=== PATIENT | female | born 1955 | race African-American/Black ===

== ENCOUNTER → 2018-04-17 12:59 | Emergency (ER) | payer MEDICARE, OTHER ==
[2018-04-17 13:16] VITALS: BP 186/94
--- NOTE | 2018-04-17 14:42 | ED ---
Lower Extremity - HPI Summary HPI Summary: This patient is a 62 year old F presenting to [facility] status post fall that occurred yesterday. Pt states that she fell getting off the bus. The patient rates the pain 10/10 in severity. Symptoms aggravated by nothing. Symptoms alleviated by nothing. Patient reports first and second left toe pain and general bruising. Patient denies headache, blurred vision, double vision, ear ache, sore throat, CP, abd pain, back pain, dysuria, and hematuria. - History of Current Complaint Chief Complaint: EDExtremityLower Stated Complaint: RIGHT FOOT PAIN Hx Obtained From: Patient Mechanism Of Injury: Fall From A Standing Position Onset of Pain: Immediate, Post Accident Onset/Duration: Still Present Severity Initially: Severe Severity Currently: Severe Pain Intensity: 10 Pain Scale Used: 0-10 Numeric Timing: Constant Location: Is Discrete @ - R foot Associated Signs And Symptoms: Positive: Other - Positive first and second left toe pain and general bruising. Negative headache, blurred vision, double vision , ear ache, sore throat, CP, abd pain, back pain, dysuria, and hematuria. Aggravating Factor(s): Nothing Alleviating Factor(s): Nothing Able to Bear Weight: No - Allergies/Home Medications Allergies/Adverse Reactions: Allergies Allergy/AdvReac Type Severity Reaction Status Date / Time carbamazepine [From Tegretol] Allergy Anaphylatic Verified 04/17/18 13:10 Shock Iodinated Contrast- Oral and Allergy See Comment Verified 04/17/18 13:10 IV Dye phenobarbital Allergy Anaphylatic Verified 04/17/18 13:10 Shock Sulfa (Sulfonamide Allergy Anaphylatic Verified 04/17/18 13:10 Antibiotics) Shock tetracycline Allergy Anaphylatic Verified 04/17/18 13:10 Shock PMH/Surg Hx/FS Hx/Imm Hx Previously Healthy: No Endocrine/Hematology History: Reports: Hx Thyroid Disease Denies: Hx Diabetes Musculoskeletal History: Reports: Other Musculoskeletal History - Polio in right leg Infectious Disease History: No Infectious Disease History: Denies: Traveled Outside the [place] in Last 30 Days - Family History Known Family History: Positive: Cardiac Disease Negative: Diabetes - Social History Occupation: Retired Lives: With Family Alcohol Use: None Hx Substance Use: No Substance Use Type: Reports: None Hx Tobacco Use: No Smoking Status (MU): Never Smoked Tobacco Review of Systems Negative: Fever Negative: Blurred Vision, Diplopia Negative: Sore Throat, Ear Ache Negative: Chest Pain Negative: Shortness Of Breath Negative: Abdominal Pain Negative: dysuria, hematuria Positive: Other - Positive first and second left toe pain. Negative back pain Positive: Bruising Negative: Headache Negative: Anxious, Depressed All Other Systems Reviewed And Are Negative: No Physical Exam - Summary Physical Exam Summary: Appearance: Alert, conversive, nontoxic appearing Skin: Warm, dry, no mottling, no rashes. Bruising to both forearms. HEENT: EOMI, PERRL, moist mucous membranes Neck: No masses on the neck, supple Respiratory: Clear to auscultation, breath sounds present, no rales, no rhonchi , no wheezes Cardiovascular: RRR, pulses are symmetrical in both lower and upper extremities Abdomen: Soft, non-tender Bowel Sounds: Present Musculoskeletal: No CVA tenderness, no obvious deformity, moving all extremities in a grossly normal manner. Muscle wasting in right leg. Swelling in first and second toes on left foot. Neurological: A&Ox3, CN II-XII Intact, moving all extremities symmetrically Psychiatric: Normal affect and mood Triage Information Reviewed: Yes Vital Signs On Initial Exam: Initial Vitals Temp Pulse Resp BP Pulse Ox 97.6 F 82 16 186/94 95 04/17/18 13:12 04/17/18 13:12 04/17/18 13:12 04/17/18 13:12 04/17/18 13:12 Vital Signs Reviewed: Yes Diagnostics - Vital Signs Vital Signs Temp Pulse Resp BP Pulse Ox 04/17/18 13:12 97.6 F 82 16 186/94 95 - Laboratory Lab Statement: Any lab studies that have been ordered have been reviewed, and results considered in the medical decision making process. - Radiology Foot XR Radiology Interpretation Completed By: Radiologist - Foot XR reveals, per radiologist, questionable nondisplaced fracture at the plantar, proximal corner of the right great toe distal phalanx. ED physician has reviewed this radiology report. Re-Evaluation - Re-Evaluation First Eval Re-Evaluation Time: 16:05 Change: Unchanged Comment: Pt states she is unable to ambulate with her cane and the surgical shoe is too painful to walk in. She will attempt to ambulate with a walker Lower Extremity Course/Dx - Course Course Of Treatment: This patient is a 62 year old F presenting to [facility] status post fall that occurred yesterday. Pt states that she fell getting off the bus. Physical Exam Findings: Muscle wasting in right leg. Bruising to both forearms. Swelling in first and second toes on left foot. Foot XR reveals, per radiologist , questionable nondisplaced fracture at the plantar, proximal corner of the right great toe distal phalanx. Patient will be discharged with follow up from PCP. The patient is agreeable with this plan. - Diagnoses Provider Diagnoses: Fracture of great toe Discharge - Sign-Out/Discharge Documenting (check all that apply): Patient Departure - Discharge home - Discharge Plan Condition: Stable Disposition: HOME Patient Education Materials: Toe Fracture (ED) Referrals: Maurilio Selby MD [Medical Doctor] - No Primary Care Phys,NOPCP [Primary Care Provider] - Additional Instructions: Wear the surgical shoe as instructed. Take tylenol and motrin for pain. Return if worse or any new symptoms. Please follow up with your primary care physician. I have also given you a referral to orthopedic surgery for your toe fracture. - Attestation Statements Document Initiated by Scribe: Yes Documenting Scribe: Mckayla Harrison Provider For Whom Scribe is Documenting (Include Credential): Malia Chacon MD Scribe Attestation: I, Mckayla Harrison, scribed for Malia Chacon MD on 04/17/18 at 1608.
--- NOTE | 2018-04-17 15:21 | RAD ---
INDICATION: Right toe pain after a fall COMPARISON: None. TECHNIQUE: 3 views of the right foot were obtained. FINDINGS: The bones are properly aligned. Joint spaces appear maintained. An enthesophyte is noted at the origin of the plantar fascia at the calcaneal tubercle. Seen only on the lateral view there is a lucent line at the plantar proximal corner of the right great toe distal phalanx. IMPRESSION: QUESTIONABLE NONDISPLACED FRACTURE AT THE PLANTAR, PROXIMAL CORNER OF THE RIGHT GREAT TOE DISTAL PHALANX.
== END | disposition home or self-care (01) ==
LOC: ED 12:59
DX: S92.404A Nondisplaced unspecified fracture of right great toe, initial encounter for closed fracture (principal); M79.671 Pain in right foot; W19.XXXA Unspecified fall, initial encounter; Y92.9 Unspecified place or not applicable
CPT/HCPCS: 99284

== ENCOUNTER 2018-12-14 08:40 | Emergency (ER) | payer MEDICARE, MEDICAID ==
[2018-12-14 08:56] VITALS: BP 156/89
--- NOTE | 2018-12-14 09:53 | UC ---
Throat Pain/Nasal Raúl HPI - HPI Summary HPI Summary: 63-year-old woman comes to the chief complaint of upper respiratory tract infection symptoms for 3-4 days. She has green rhinorrhea sinus pressure. Also having cough. She is getting bilateral lower chest pain with cough. No recent fevers. 5 days ago she did have an EGD and a colonoscopy. She reports having some polyps removed but she's not sure what else went on. The sinus symptoms started the day after the procedure. Denies any history of pulmonary embolus or DVT. Denies any pedal edema or calf pain. - History of Current Complaint Chief Complaint: UCRespiratory Stated Complaint: COUGH PAIN IN RIB AREA Time Seen by Provider: 12/14/18 09:41 Pain Intensity: 10 - Allergies/Home Medications Allergies/Adverse Reactions: Allergies Allergy/AdvReac Type Severity Reaction Status Date / Time amoxicillin [From Augmentin] Allergy Unknown Verified 12/14/18 08:57 Reaction Details carbamazepine [From Tegretol] Allergy Anaphylatic Verified 12/14/18 08:57 Shock chocolate flavor Allergy Unknown Verified 12/14/18 08:57 Reaction Details ciprofloxacin Allergy Unknown Verified 12/14/18 08:57 Reaction Details clavulanic acid Allergy Unknown Verified 12/14/18 08:57 [From Augmentin] Reaction Details clindamycin Allergy Unknown Verified 12/14/18 08:57 Reaction Details diazepam Allergy Unknown Verified 12/14/18 08:57 Reaction Details doxycycline Allergy Unknown Verified 12/14/18 08:57 Reaction Details Iodinated Contrast- Oral and Allergy Syncope Verified 12/14/18 08:57 IV Dye iodine Allergy Syncope Verified 12/14/18 08:57 iopamidol Allergy Unknown Verified 12/14/18 08:57 Reaction Details methimazole Allergy Unknown Verified 12/14/18 08:57 Reaction Details phenobarbital Allergy Anaphylatic Verified 12/14/18 08:57 Shock Sulfa (Sulfonamide Allergy Anaphylatic Verified 12/14/18 08:57 Antibiotics) Shock tetracycline Allergy Anaphylatic Verified 12/14/18 08:57 Shock tomato Allergy Unknown Verified 12/14/18 08:57 Reaction Details seafood Allergy Unknown Uncoded 12/14/18 08:57 Reaction Details Home Medications: Home Medications Atenolol TAB* [Tenormin TAB* 25 MG] 25 mg PO DAILY 12/14/18 [History Confirmed 12/14/18] Ergocalciferol (Vitamin D2) [Vitamin D2] 50 mcg PO MONTHLY 12/14/18 [History Confirmed 12/14/18] PMH/Surg Hx/FS Hx/Imm Hx Previously Healthy: Yes Endocrine History: Dyslipidemia Cardiovascular History: Hypertension - Surgical History Surgical History: Yes Surgery Procedure, Year, and Place: C SECTIONS X3. POLYPS IN THROAT REMOVED. DEVIATED SEPTUM. TUBAL LIGATION - Family History Known Family History: Positive: Cardiac Disease Negative: Diabetes - Social History Alcohol Use: None Substance Use Type: None Smoking Status (MU): Former Smoker Review of Systems All Other Systems Reviewed And Are Negative: Yes Constitutional: Positive: Negative Skin: Positive: Negative Eyes: Positive: Negative ENT: Positive: Sore Throat, Nasal Discharge, Sinus Congestion Respiratory: Positive: Other - SEE HPI Cardiovascular: Positive: Chest Pain - SEE HPI Gastrointestinal: Positive: Negative Motor: Positive: Negative Neurovascular: Positive: Negative Musculoskeletal: Positive: Negative. Negative: Calf Tenderness, Edema Neurological: Positive: Negative Psychological: Positive: Negative Is Patient Immunocompromised?: No Physical Exam Triage Information Reviewed: Yes Appearance: No Pain Distress, Well-Nourished, Ill-Appearing - MILD Vital Signs: Initial Vital Signs Temp 97.7 F 12/14/18 08:49 Pulse 93 12/14/18 08:49 Resp 16 12/14/18 08:49 BP 156/89 12/14/18 08:49 Pulse Ox 98 12/14/18 08:49 Vital Signs Reviewed: Yes Eye Exam: Normal Eyes: Positive: Conjunctiva Clear ENT: Positive: Pharyngeal erythema, Nasal congestion, Nasal drainage, TMs normal Neck: Positive: Supple Respiratory: Positive: Lungs clear, Normal breath sounds, No respiratory distress Cardiovascular: Positive: RRR Musculoskeletal Exam: Normal Musculoskeletal: Positive: Strength Intact, ROM Intact, No Edema - NO CALF TENDERNESS Neurological: Positive: Alert Psychological Exam: Normal Psychological: Positive: Age Appropriate Behavior Skin Exam: Normal Throat Pain/Nasal Course/Dx - Course Course Of Treatment: THE PATIENT PREFERS TO BE ON ANTIBIOTICS AT THIS TIME. - Differential Dx/Diagnosis Provider Diagnosis: Upper respiratory infection Discharge - Sign-Out/Discharge Documenting (check all that apply): Patient Departure All imaging exams completed and their final reports reviewed: No Studies - Discharge Plan Condition: Stable Disposition: HOME Prescriptions: Azithromyxin KELSI (NF) [Z-Kelsi (Zithromax) 250 mg tabs #6] 2 tab PO .TODAY, THEN 1 DAILY #6 tab Patient Education Materials: Upper Respiratory Infection (ED) Referrals: Dc Leach NP [Primary Care Provider] - Additional Instructions: FOLLOW UP WITH YOUR DOCTOR IF NOT COMPLETELY IMPROVED. GET RECHECKED SOONER IF YOUR CONDITION WORSENS; CHEST PAIN, SHORTNESS OF BREATH , YOU FEEL ILL OR ANY QUESTIONS OR CONCERNS. - Billing Disposition and Condition Condition: STABLE Disposition: Home
== END 2018-12-14 10:05 | disposition home or self-care (01) ==
LOC: UCEAST 08:40
DX: J06.9 Acute upper respiratory infection, unspecified (principal); I10 Essential (primary) hypertension; Z87.891 Personal history of nicotine dependence; Z88.8 Allergy status to other drugs, medicaments and biological substances; Z91.018 Allergy to other foods; Z88.2 Allergy status to sulfonamides; Z91.041 Radiographic dye allergy status; Z88.1 Allergy status to other antibiotic agents; Z88.0 Allergy status to penicillin
CPT/HCPCS: 99212; G0463

== ENCOUNTER 2019-06-06 12:35 | Emergency (ER) | payer MEDICARE, MEDICAID ==
--- OUTSIDE RECORDS SUMMARY | 2019-06-06 12:41 | XMS REPORT | Continuity of Care Document ---
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 Onset: 04/15/2019 Social History Type Date Description Comments Sex Unknown Tobacco Use Start: Unknown Never Smoked Cigarettes Smoking Status Reviewed: 05/31/19 Never Smoked Cigarettes ETOH Use Denies alcohol use Tobacco Use Start: Unknown End: Patient is a former smoker Unknown Recreational Drug Use Denies Drug Use Exercise Type/Frequency Exercises rarely Allergies, Adverse Reactions, Alerts Active Allergies Reaction Severity Comments Date Sulfa Antibiotics rash 05/18/2018 Iodine 05/18/2018 Tetracycline 05/18/2018 Iopamidol 06/01/2018 Augmentin Difficulty breathing, 06/01/2018 Mouth swells and rash Tegretol rash 06/01/2018 Ciprofloxacin Difficulty breathing, 06/01/2018 rash and mouth swells Diazepam palpitations 06/01/2018 Doxycycline 06/01/2018 Methimazole 06/01/2018 Phenobarbital rash 06/01/2018 Chocolate 06/01/2018 Tomatos 06/01/2018 Seafood 06/01/2018 Iodinated Diagnostic Agents 06/01/2018 Clindamycin Thrush Severe 06/02/2018 Medications Active Medications SIG Qnty Indications Ordering Date Provider Pregabalin Take One Capsule 30caps Yovani Izaguirre, 05/03/2019 50mg Capsules By Mouth Twice M.D. Daily Ongoing Omeprazole 1 by mouth every 90caps Dc Leach NP 04/19/[address] day Hydroxychloroquine take 2 tablets 60tabs M05.79 Yovani Ramirezdor, 03/30/2019 Sulfate daily ongoing M.D. 200mg Tablets Metformin HCL take 1 tablet by 180tabs E11.9 Dc Leach NP 03/24/2019 500mg Tablets mouth twice a day Loratadine once a day for 90caps J30.89 Dc Leach NP 03/24/2019 10mg Capsules allergies Atenolol 1 by mouth every 30tabs E05.80 Gao Ignacio, 11/29/2018 25mg Tablets day in the MD morning Atorvastatin Calcium Take 1 Tablet By 90tabs Dc Leach NP 11/22/2018 80mg Mouth Every Tablets Night AT Bedtime Lisinopril Take 1 Tablet By 30tabs Dc Leach NP 09/07/2018 40mg Tablets Mouth Every Day Lorazepam take 1 tablet by 2tabs Dc Leach NP 09/07/2018 1mg Tablets mouth one hour prior to MRI. May take a second tablet if the first is not effective. Vitamin D-1000 Maximum take one 90tabs Dc Leach NP 07/13/2018 Strength capsule/tablet 1000Unit Tablets daily by mouth Tramadol HCL 1-2 tablets 60tabs M54.5 Dc Leach NP 06/03/2018 50mg Tablets every 12 hours as needed for pain. History Medications Azithromycin 2 tabs by mouth 6tabs J01.90 Dc Leach NP 03/24/2019 - 250mg every day x1 03/31/2019 Tablets day, 1 tab by mouth every day x 4 days Lyrica take one 30caps Yovani Izaguirre, 03/07/2019 - 50mg Capsules tablet/capsule M.D. 05/03/2019 by mouth at bedtime for 1 week then 1 twice daily ongoing. Azithromycin 2 tabs by mouth 6tabs J01.90 Dc Leach NP 02/07/2019 - 250mg every day x1 02/14/2019 Tablets day, 1 tab by mouth every day x 4 days Fluticasone 2 sprays each 48gm J30.89 Reyna Del Castillo, 02/07/2019 - Propionate nostril qd. N.P. 03/24/2019 50mcg/Act Suspension Immunizations Description No Information Available Vital Signs Date Vital Result Comment 05/31/2019 11:08am Height 55 inches 4'7" Heart Rate 80 /min BP Systolic Sitting 190 mmHg BP Diastolic Sitting 75 mmHg 03/24/2019 2:46pm Height 55 inches 4'7" Weight 173.00 lb Heart Rate 57 /min BP Systolic 137 mmHg BP Diastolic 64 mmHg Body Temperature 97.5 F O2 % BldC Oximetry 95 % BMI (Body Mass Index) 40.2 kg/m2 Results Test Acquired Date Facility Test Result H/L Range Note Laboratory test 03/24/2019 [facility] Hemoglobin A1c 7.7 High 5-7 finding Laboratory test 12/29/2018 [facility] SEE RESULT 1 , [address] [place] [address] [phone] Laboratory test 12/09/2018 [facility] Clotest SEE RESULT [address] [place] [address] [phone] Laboratory test 12/09/2018 [facility] SEE RESULT [address] [place] [address] [phone] 1 [id number] 2 SEE RESULT BELOW Name: NIMA BARRAZA : [address]: Lisy Aleman MD Acct: [id number] Unit: [id number] AGE: 63 Location: [facility] Re12/29/18 SEX: F Status: REG REF SPEC: [id number] ANJU: 12/29/[address] [facility] [address]: Lisy Aleman MD REQ: [id number] RECD: 12/29/18 STATUS: SOUT _ ORDERED: TP IMAGE ANALYS, HPV/Thin Prep COMMENTS: [id number] Negative for Intraepithelial lesion or Malignancy Date Time Test Result Flag (u) Normal Range 12/29/18939 HPV RNA Negative Negative The high-risk HPV types detected by the assay include: 16, 18, 31, 33, 35, 39, 45, 51, 52, 56, 58, 59, 66, and 68. A. Ectocervical/Endocervical Specimen Adequacy: Satisfactory of evaluation Transformation zone component not identified Patient Information: HPV: High risk HPV RNA testing regardless of pap results. Actual Specimen Date: 12/29/18 Last Menstrual Date: 08/02/91 ?: N Post Menopausal?: Y Hysterectomy?: N Signed by and Reported on: GLENIS Tom (ASCP) [id number] This Pap test was evaluated with the assistance of the ThinPrep Test Imaging System. Due to cytologic findings at the display maker microscope, comprehensive manual rescreening by a Psychologist Private Practice may be required. The Pap Smear is a screening test designed to aid in the detection of premalignant and malignant conditions of the uterine cervix. It is not a diagnostic procedure and should not be used as the sole means of detecting cervical cancer. Both false- positive and false- negative reports do occur. Depending on your risk status, a Pap smear should be obtained and evaluated every 1-3 years. END OF REPORT DEPARTMENT OF PATHOLOGY, [address] [place] [address] Boy Bowling M.D. Director [facility] # [id number] 3 SEE RESULT BELOW Name: NIMA BARRAZA : [address]: Sarita Aguilar MD Acct: [id number] Unit: [id number] AGE: 63 Location: ENDO Re12/09/18 SEX: F Status: REG REF SPEC: [id number] ANJU: 12/09/18-[address] [facility] [address]: Sarita Hernandez MD REQ: [id number] RECD: 12/09/18 STATUS: [facility] DR: Dc Leach BUSINESS APPLICATIONS SPECIALIST _ SOURCE: GAS ANTRUM SPDESC: ORDERED: Clotest Procedure Result Reported Site Clotest Final 12/10/18742 ML Clotest Negative * ML - Main Lab . END OF REPORT DEPARTMENT OF PATHOLOGY, [address] [place] [address] Boy Bowling M.D. Director [facility] # [id number] 4 SEE RESULT BELOW Name: NIMA BARRAZA : [address]: Sarita Aguilar MD Acct: [id number] Unit: [id number] AGE: 63 Location: ENDO Re12/09/18 SEX: F Status: DEP REF SPEC: [id number] ANJU: 12/09/18-[address] [facility] [address]: Sarita Hernandez MD REQ: [id number] RECD: 12/09/18 STATUS: [facility] DR: Dc Leach BUSINESS APPLICATIONS SPECIALIST _ ORDERED: LEVEL 4/7, IMMUNO-FIRST ADDENDUM An H. pylori immunohistochemical stain, with appropriately reacting controls , was performed on sections cut from specimen 3 and is negative for Helicobacter organisms. Addendum Signed (signature on file) Melissa Candelario MD [id number] FINAL DIAGNOSIS 1. Duodenum, biopsy: -- Benign small intestinal mucosa with no significant pathologic abnormalities. -- No evidence of villous blunting or increased intraepithelial lymphocytes. 2. Duodenum, nodule, biopsy: -- Benign duodenal mucosa with nodular Renan glands. -- No evidence of villous blunting or increased intraepithelial lymphocytes. 3. Stomach, biopsy: -- Antral and body-type gastric mucosa with moderate chronic gastritis; see comment. 4. Gastroesophageal junction, biopsy: -- Benign squamous and columnar-type mucosa with chronic inflammation. -- Intestinal metaplasia is absent. -- Dysplasia is absent. 5. Esophagus, distal, biopsy: -- Benign squamous mucosa with mild erosive changes. -- No columnar component present for evaluation. -- No evidence of eosinophilic esophagitis. 6. Esophagus, mid, biopsy: -- Benign squamous mucosa with mild erosive changes. -- No evidence of eosinophilic esophagitis. CONTINUED ON NEXT PAGE DEPARTMENT OF PATHOLOGY, [address] [place] [address] Boy Bowling M.D. Director [facility] # [id number] RUN DATE: 12/14/18 [facility] LIVE PAGE 2 Patient: NIMA BARRAZA Jesus [id number] (Continued) FINAL DIAGNOSIS (Continued) 7. Colon, descending, biopsy: -- Hyperplastic polyps. COMMENT: An H. pylori immunohistochemical stain is pending for specimen 3 and the results will be reported in an addendum. CLINICAL HISTORY Dysphagia; abdominal pain; family history of colon cancer PRE-OPERATIVE DIAGNOSIS POST-OPERATIVE DIAGNOSIS EGD: esophagus - tortuous, spastic, no stricture; mildly irregular z line and gastroesophageal junction; gastric - few borderline erosions; VIRGEN test; biopsy; duodenum - normal, biopsy nodule; colonoscopy: to cecum; (2) descending 3 mm jumbo; diverticulosis left; internal hemorrhoids; hyperplastic adenoma polyp GROSS DESCRIPTION 1. The specimen is received in formalin labeled, Biopsy Duodenum, and consists of a 0.7 x 0.5 x 0.2 cm aggregate of fuller irregular soft tissue fragments which is submitted entirely in one cassette. 2. The specimen is received in formalin labeled, Biopsy Duodenal Nodule, and consists of a 0.4 x 0.3 x 0.2 cm fuller irregular soft tissue fragment which is submitted entirely in one cassette. 3. The specimen is received in formalin labeled, Biopsy Gastric, and consists of a 0.7 x 0.5 x 0.2 cm aggregate of fuller irregular soft tissue fragments which is submitted entirely in one cassette. CONTINUED ON NEXT PAGE DEPARTMENT OF PATHOLOGY, [address] [place] [address] Boy Bowling M.D. Director [facility] # [id number] RUN DATE: 12/14/18 [facility] LIVE PAGE 3 Patient: NIMA BARRAZA [id number] (Continued) GROSS DESCRIPTION (Continued) 4. The specimen is received in formalin labeled, Biopsy GE Junction, and consists of two fuller-white irregular soft tissue fragments measuring 0.3 x 0.3 x 0.1 cm and 0.5 x 0.3 x 0.1 cm which are submitted entirely in one cassette. 5. The specimen is received in formalin labeled, Biopsy Distal Esophagus, and consists of a 0.6 x 0.5 x 0.2 cm aggregate of fuller-white irregular soft tissue fragments which is submitted entirely in one cassette. 6. The specimen is received in formalin labeled, Biopsy Mid Esophagus, and consists of a 0.6 x 0.5 x 0.1 cm aggregate of fuller-white irregular soft tissue fragments which is submitted entirely in one cassette. 7. The specimen is received in formalin labeled, Biopsy Polyps Descending Colon, and consists of two fuller irregular to polypoid soft tissue fragments measuring 0.3 x 0.3 x 0.2 cm and 0.4 x 0.3 x 0.2 cm which are submitted entirely in one cassette. Signed by and Reported on: Melissa Candelario MD 12/13/18 1132 END OF REPORT DEPARTMENT OF PATHOLOGY, [address] [place] [address] Boy Bowling M.D. Director [facility] # [id number] Procedures Date Code Description Status 01/31/2019 72532067 Mammogram Completed 12/09/2018 [id number] Colonoscopy Completed 11/23/2017 [id number] Mammogram Completed 11/13/2017 [id number] Mammogram Completed Medical Devices Description No Information Available Encounters Type Date Location Provider Dx Diagnosis Office Visit 03/24/2019 [facility] Dc Haylee, BUSINESS APPLICATIONS SPECIALIST E11.9 Type 2 diabetes 2:40p Medicine - [facility] mellitus without complications E78.5 Hyperlipidemia, unspecified I10 Essential (primary) hypertension R41.3 Other amnesia J30.89 Other allergic rhinitis J01.90 Acute sinusitis, unspecified Office Visit 03/07/2019 11:40a Rheumatology Yovani Izaguirre, M05.79 [facility] Ondina w rheu factor mult site w/o org/sys involv 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 M54.2 Cervicalgia M54.6 Pain in thoracic spine Office Visit 02/07/2019 10:40a [facility] Internal Dc Haylee, I10 Essential ( primary) Medicine - [facility] BUSINESS APPLICATIONS SPECIALIST hypertension M05.79 Rheu arthritis w rheu factor mult site w/o org/sys involv J30.89 Other allergic rhinitis J01.90 Acute sinusitis, unspecified Office Visit 12/29/2018 10:00a [facility], Z01.419 Encntr for wellness health coach [facility] MD exam (general) (routine) w/o abn findings R10.2 Pelvic and perineal pain Z12.31 Encntr screen mammogram for malignant neoplasm of breast Z11.51 Encounter for screening for human papillomavirus (HPV) N39.41 Urge incontinence Assessments Date Code Description Provider 05/31/2019 E06.3 Autoimmune thyroiditis Murray Pierre MD 03/24/2019 E11.9 Type 2 diabetes mellitus without complications Dc Haylee, BUSINESS APPLICATIONS SPECIALIST 03/24/2019 E78.5 Hyperlipidemia, unspecified Dc Haylee, BUSINESS APPLICATIONS SPECIALIST 03/24/2019 I10 Essential (primary) hypertension Dc Haylee, BUSINESS APPLICATIONS SPECIALIST 03/24/2019 R41.3 Other amnesia Dc Haylee, BUSINESS APPLICATIONS SPECIALIST 03/24/2019 J30.89 Other allergic rhinitis Dc Haylee, BUSINESS APPLICATIONS SPECIALIST 03/24/2019 J01.90 Acute sinusitis, unspecified Dc Haylee, BUSINESS APPLICATIONS SPECIALIST 03/07/2019 M05.79 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 03/07/2019 M54.2 Cervicalgia Yovani Izaguirre M.D. 03/07/2019 M54.6 Pain in thoracic spine Yovani Izaguirre M.D. 02/07/2019 I10 Essential (primary) hypertension Dc Leach NP 02/07/2019 M05.79 Rheumatoid arthritis with rheumatoid factor of Dc Leach NP multiple site 02/07/2019 J30.89 Other allergic rhinitis Dc Leach NP 02/07/2019 J01.90 Acute sinusitis, unspecified Dc Leach NP 12/29/2018 Z01.419 Encounter for gynecological examination Lisy Aleman MD (general) (routine) 12/29/2018 R10.2 Pelvic and perineal pain Lisy Aleman MD 12/29/2018 Z12.31 Encounter for screening mammogram for Lisy Aleman MD malignant neoplasm of 12/29/2018 Z11.51 Encounter for screening for human Lisy Aleman MD papillomavirus (HPV) 12/29/2018 N39.41 Urge incontinence Lisy Aleman MD Plan of Treatment Future Appointment(s):06/26/2019 4:00 pm - Dc Leach NP at [facility] Internal Medicine - [facility]06/08/2019 11:00 am - Yovani Izaguirre M.D. at [facility]08/10/2019 10:20 am - Dc Leach NP at [facility] Internal Medicine - [facility]05/31/2019 - Murray Pierre MDE06.3 Autoimmune thyroiditisFollow up: None.Instructions:1. Blood tests today. 2. No follow-up needed if thyroid function tests are normal. 3. Return as needed. Functional Status Description No Information Available Mental Status Description No Information Available Referrals Refer to Reason for Referral Status Appt Date Jey Myers MD Please monitor for Plaquenil toxicity Sent [address] [place] [address] [phone] [facility] Sent [address] [place] [address] [phone] Hima Mae MD Severe urge incontinence. Making pt unable to Sent 01/03 leave house. No pelvic prolapse on exam. [address] [place], [place] [id number] [phone]
[2019-06-06 12:57] VITALS: BP 173/86
[2019-06-06] MEDS ORDERED: Azithromycin TAB* 250 MG PO ONE (15:22)
--- NOTE | 2019-06-06 22:11 | UC ---
Neck Pain HPI - HPI Summary HPI Summary: 63 year old female with multiple PMH presents with increased pain b/l neck extending into ears. + pain with chewing/ swallowing at times. Patient had same condition in March, was seen by YANIRA Leach, placed on azithromycin with improvement after 10 dose, however returned 1-2 weeks ago. H/O graves disease, followed Dr. Spencer, was told today that everything was "good". Patient states symptoms have been "on and off" for 10 years and no dx given. voices frustration. worse L>R - History of Current Complaint Chief Complaint: UCEar Stated Complaint: SWOLLEN EARS Time Seen by Provider: 06/06/19 14:06 Hx Obtained From: Patient ?: No Onset/Duration Of Injury/Symptoms: Weeks - 1-2 weeks Onset/Duration: Gradual Onset, Lasting Weeks Severity: Moderate Pain Intensity: 2 Pain Scale Used: 0-10 Numeric Location: Discrete At: - b/l face/ neck Aggravating Factors: Movement Associated Signs & Symptoms: Positive: Swelling. Negative: Redness, Bruising, Fever, Nuchal Rigity, Weakness, Headache, Paresthesia - Allergies/Home Medications Allergies/Adverse Reactions: Allergies Allergy/AdvReac Type Severity Reaction Status Date / Time amoxicillin [From Augmentin] Allergy Unknown Verified 06/06/19 12:58 Reaction Details carbamazepine [From Tegretol] Allergy Anaphylatic Verified 06/06/19 12:58 Shock chocolate flavor Allergy Unknown Verified 06/06/19 12:58 Reaction Details ciprofloxacin Allergy Unknown Verified 06/06/19 12:58 Reaction Details clavulanic acid Allergy Unknown Verified 06/06/19 12:58 [From Augmentin] Reaction Details clindamycin Allergy Unknown Verified 06/06/19 12:58 Reaction Details diazepam Allergy Unknown Verified 06/06/19 12:58 Reaction Details doxycycline Allergy Unknown Verified 06/06/19 12:58 Reaction Details Iodinated Contrast Media Allergy Syncope Verified 06/06/19 12:58 [Iodinated Contrast- Oral and IV Dye] iodine Allergy Syncope Verified 06/06/19 12:58 iopamidol Allergy Unknown Verified 06/06/19 12:58 Reaction Details methimazole Allergy Unknown Verified 06/06/19 12:58 Reaction Details phenobarbital Allergy Anaphylatic Verified 06/06/19 12:58 Shock Sulfa (Sulfonamide Allergy Anaphylatic Verified 06/06/19 12:58 Antibiotics) Shock tetracycline Allergy Anaphylatic Verified 06/06/19 12:58 Shock tomato Allergy Unknown Verified 06/06/19 12:58 Reaction Details seafood Allergy Unknown Uncoded 06/06/19 12:58 Reaction Details PMH/Surg Hx/FS Hx/Imm Hx Previously Healthy: No Endocrine History: Thyroid Disease - Surgical History Surgical History: Yes Surgery Procedure, Year, and Place: C SECTIONS X3. POLYPS IN THROAT REMOVED. DEVIATED SEPTUM. TUBAL LIGATION - Family History Known Family History: Positive: Cardiac Disease Negative: Diabetes - Social History Alcohol Use: None Substance Use Type: None Smoking Status (MU): Former Smoker Review of Systems All Other Systems Reviewed And Are Negative: Yes Constitutional: Positive: Fatigue. Negative: Fever, Chills Respiratory: Positive: Cough. Negative: Shortness Of Breath Genitourinary: Positive: Negative Musculoskeletal: Positive: Edema, Myalgia Neurological: Positive: Headache Is Patient Immunocompromised?: No Physical Exam Triage Information Reviewed: Yes Appearance: Well-Appearing, No Pain Distress, Well-Nourished Vital Signs: Initial Vital Signs Temp 98 F 06/06/19 12:54 Pulse 69 06/06/19 12:54 Resp 16 06/06/19 12:54 BP 173/86 06/06/19 12:54 Pulse Ox 99 06/06/19 12:54 Vital Signs Reviewed: Yes Eyes: Positive: Conjunctiva Clear ENT: Positive: Pharynx normal, TMs normal, Uvula midline. Negative: Pharyngeal erythema, TM bulging, TM dull, TM red, Tonsillar swelling, Tonsillar exudate, Sinus tenderness Dental: Positive: Gross Decay/Caries @ - throughout mouth with fx'd teeth seen, multiple cavities. Neck: Positive: Tenderness @ - TTP L parotid region, extending to periauricular area down along SCM b/l, L>R. mild edema plapable, non-pitting.. Negative: Nuchal Rigidity, Enlarged Nodes @ Respiratory: Positive: Chest non-tender, Lungs clear, Normal breath sounds, No respiratory distress, No accessory muscle use. Negative: Respiratory distress, Crackles, Rhonchi, Stridor, Wheezing Cardiovascular: Positive: RRR, No Murmur Abdomen Description: Positive: Nontender Neurological Exam: Normal Skin Exam: Normal Neck Pain Course/Dx - Course Course Of Treatment: CT neck- negative for infection, LAD - Increase fluid intake - Antibiotics as directed - Motrin as needed for pain, swelling every 6 hours - Increase fluid intake - Folllow up with ENT - Differential Dx/Diagnosis Differential Dx/HQI/PQRI: Sprain, Strain, Trauma Provider Diagnosis: Edema Discharge ED - Sign-Out/Discharge Documenting (check all that apply): Patient Departure All imaging exams completed and their final reports reviewed: Yes - Discharge Plan Condition: Good Disposition: HOME Prescriptions: Azithromycin 250 mg PO DAILY #9 tablet Patient Education Materials: Sinusitis (ED) Referrals: Maico Melvin MD [Medical Doctor] - (follow up in 2-5 days ) Dc Leach NP [Primary Care Provider] - Additional Instructions: - Increase fluid intake - Antibiotics as directed - Motrin as needed for pain, swelling every 6 hours - Increase fluid intake - Folllow up with ENT - Billing Disposition and Condition Condition: GOOD Disposition: Home
== END 2019-06-06 15:35 | disposition home or self-care (01) ==
LOC: UCEAST 12:35
DX: R60.0 Localized edema (principal); M54.2 Cervicalgia; H92.03 Otalgia, bilateral; Z88.0 Allergy status to penicillin; Z88.8 Allergy status to other drugs, medicaments and biological substances; Z91.02 Food additives allergy status; Z88.1 Allergy status to other antibiotic agents; Z91.041 Radiographic dye allergy status; Z91.09 Other allergy status, other than to drugs and biological substances; Z91.018 Allergy to other foods; Z91.013 Allergy to seafood; Z87.891 Personal history of nicotine dependence
CPT/HCPCS: 70490; 99212; A9270-GY; G0463

== ENCOUNTER 2019-09-28 12:05 | Emergency (ER) | payer MEDICARE, MEDICAID ==
--- OUTSIDE RECORDS SUMMARY | 2019-09-28 12:15 | XMS REPORT | Continuity of Care Document ---
:1955 External Reference #:[id number] Author Name Dc Leach NP (transmitted by agent of provider Katrina Weaver) Address [address] [facility], [place] [address] Care Team Providers Name Role Phone Christie Steen MD - Internal Medicine Care Team Information Manager Animal Problems Active Problems Provider Date Essential hypertension Dc Leach NP Onset: 05/23/2018 Hyperthyroidism Dc Leach NP Onset: 05/23/2018 Diabetes mellitus Carrie Steel M.D. Onset: 04/15/2019 Social History Type Date Description Comments Sex Unknown Tobacco Use Start: Unknown Never Smoked Cigarettes Smoking Status Reviewed: 08/17/19 Never Smoked Cigarettes ETOH Use Denies alcohol [...] Medications SIG Qnty Indications Ordering Date Provider Atenolol One tablet PO 30tabs E05.80 Dc Leach NP 08/17/2019 50mg Tablets once daily Azithromycin 2 tabs by mouth 6tabs J01.90 Dc Leach NP 08/17/2019 250mg Tablets every day x1 day, 1 tab by mouth every day x 4 days Pregabalin Take one 60caps Yovani Izaguirre, 08/04/2019 75mg Capsules capsule/tablet M.D. by mouth twice daily Vitamin D3 1,000 Unit Take One Capsule 90units Dc Leach NP 08/04/2019 Softgel By Mouth Daily Omeprazole 1 by mouth every 90caps Dc Leach NP 04/19/[address] day Hydroxychloroquine take 2 tablets 60tabs M05.79 Yovani Izaguirre, 03/30/2019 Sulfate daily ongoing M.D. 200mg Tablets Metformin HCL take 2 tablets 180tabs E11.9 Dc Leach NP 03/24/2019 500mg Tablets by mouth twice a day Loratadine once a day for 90caps J30.89 Dc Leach NP 03/24/2019 10mg Capsules allergies Atorvastatin Calcium Take 1 Tablet By 90tabs Dc Leach NP 11/22/2018 80mg Mouth Every Tablets Night AT Bedtime Lisinopril Take 1 Tablet By 90tabs Dc Leach NP 09/07/2018 40mg Tablets Mouth Every Day Lorazepam take 1 tablet by 2tacarmela Leach NP 09/07/2018 1mg Tablets mouth one hour prior to MRI. May take a second tablet if the first is not effective. Vitamin D-1000 Maximum take one 90tabs Dc Leach NP 07/13/2018 Strength capsule/tablet 1000Unit Tablets daily by mouth Tramadol HCL Take 1-2 Tablets 60tabs M54.5 Dc Leach NP 06/03/2018 50mg Tablets By Mouth Every 12 Hours as Needed For Pain History Medications Pregabalin Take One Capsule 30caps Yovani Izaguirre, 05/03/2019 - 50mg By Mouth Twice M.D. 08/04/2019 Capsules Daily Azithromycin 2 tabs by mouth 6tabs J01.90 Dc Leach NP 03/24/2019 - 250mg every day x1 03/31/2019 Tablets day, 1 tab by mouth every day x 4 days Lyrica take one 30caps Yovani Izaguirre 03/07/2019 - 50mg Capsules tablet/capsule M.D. 05/03/2019 by mouth at bedtime for 1 week then 1 twice daily ongoing. Immunizations Description No Information Available Vital Signs Date Vital Result Comment 08/17/2019 10:35am Height 55 inches 4'7" Weight 169.25 lb Heart Rate 100 /min BP Systolic Sitting 156 mmHg BP Diastolic Sitting 86 mmHg BP Systolic Recheck 162 mmHg BP Diastolic Recheck 92 mmHg Body Temperature 98.6 F O2 % BldC Oximetry 97 % BMI (Body Mass Index) 39.3 kg/m2 07/25/2019 10:16am Height 55 inches 4'7" Weight 172.00 lb Heart Rate 88 /min BP Systolic Sitting 160 mmHg BP Diastolic Sitting 92 mmHg Body Temperature 98.0 F Pain Level 9 O2 % BldC Oximetry 98 % BMI (Body Mass Index) 40.0 kg/m2 Results Test Acquired Date Facility Test Result H/L Range Note Laboratory test 07/05/2019 [facility] In House Hemoglobin A1c 7.5 High 5-7 finding Laboratory test 05/31/2019 [facility] TSH (Thyroid 2.59 Normal 0.34-5.[address] Stim Horm) mcIU/[place] [address] [phone] Free T4 (Free Thyroxine) 0.82 ng/dL Normal 0.61-1.12 Laboratory test finding 03/24/2019 [facility] In House Hemoglobin A1c 7.7 High 5 -7 Procedures Date Code Description Status 01/31/2019 [id number] Mammogram Completed 12/09/2018 [id number] Colonoscopy Completed 11/23/2017 [id number] Mammogram Completed 11/13/2017 [id number] Mammogram Completed Medical Devices Description No Information Available Encounters Type Date Location Provider Dx Diagnosis Office Visit 07/25/2019 Rheumatology Yovani Izaguirre, M05.79 Rheu arthritis w 10:00a [facility] factor mult site w/o org/sys involv M51.16 Intervertebral disc disorders w radiculopathy, lumbar region Z79.899 Other intermodal customer service (current) drug therapy M62.40 Contracture of muscle, unspecified site E78.5 Hyperlipidemia, unspecified R91.8 Other nonspecific abnormal finding of lung field Office Visit 07/05/2019 1:40p [facility] Internal Dc Haylee, E11.9 Type 2 diabetes Medicine [facility] SILK SCREEN ETCHER mellitus without complications I10 Essential (primary) hypertension E78.5 Hyperlipidemia, unspecified J30.89 Other allergic rhinitis M51.16 Intervertebral disc disorders w radiculopathy, lumbar region M54.2 Cervicalgia Office Visit 05/31/2019 [place] [facility], 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 of thyroiditis [facility] Office Visit 03/24/2019 [facility] Internal Dc Haylee, E11.9 Type 2 diabetes 2:40p Medicine - [facility] SILK SCREEN ETCHER mellitus without complications E78.5 Hyperlipidemia, unspecified I10 Essential (primary) hypertension R41.3 Other amnesia J30.89 Other allergic rhinitis J01.90 Acute sinusitis, unspecified Office Visit 03/07/2019 11:40a Rheumatology Yovani Izaguirre, M05.79 Rheu arthritis [facility] Ondina w rhejavon factor mult site w/o org/sys involv Z79.899 Other fpc (current) drug therapy M54.2 Cervicalgia M54.6 Pain in thoracic spine Assessments Date Code Description Provider 08/17/2019 I10 Essential (primary) hypertension Dc Haylee, SILK SCREEN ETCHER 08/17/2019 J01.90 Acute sinusitis, unspecified Dc Haylee, SILK SCREEN ETCHER 08/17/2019 R14.0 Abdominal distension (gaseous) Dcnerissa Leach, SILK SCREEN ETCHER 08/17/2019 K21.9 Gastro-esophageal reflux disease without Dc Haylee, SILK SCREEN ETCHER esophagitis 07/25/2019 M05.79 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 multiple site 07/25/2019 M51.16 Intervertebral disc disorders with Yovani Izaguirre M.D. radiculopathy, lumbar region 07/25/2019 Z79.899 Other fpc (current) drug therapy Yovani Izaguirre M.D. 07/25/2019 M62.40 Contracture of muscle, unspecified site Yovani Izaguirre M.D. 07/25/2019 E78.5 Hyperlipidemia, unspecified Yovani Izaguirre M.D. 07/25/2019 R91.8 Other nonspecific abnormal finding of lung Yovani Izaguirre M.D. field 07/05/2019 E11.9 Type 2 diabetes mellitus without complications Dc Leach NP 07/05/2019 I10 Essential (primary) hypertension Dc Haylee, SILK SCREEN ETCHER 07/05/2019 E78.5 Hyperlipidemia, unspecified Dc Haylee, SILK SCREEN ETCHER 07/05/2019 J30.89 Other allergic rhinitis Dc Haylee, SILK SCREEN ETCHER 07/05/2019 M51.16 Intervertebral disc disorders with Dc Haylee, SILK SCREEN ETCHER radiculopathy, lumbar region 07/05/2019 M54.2 Cervicalgia Dc Haylee, SILK SCREEN ETCHER 05/31/2019 E06.3 Autoimmune thyroiditis Murray Pierre MD 03/24/2019 E11.9 Type 2 diabetes mellitus without complications Dc Haylee, SILK SCREEN ETCHER 03/24/2019 E78.5 Hyperlipidemia, unspecified Dc Haylee, SILK SCREEN ETCHER 03/24/2019 I10 Essential (primary) hypertension Dc Haylee, SILK SCREEN ETCHER 03/24/2019 R41.3 Other amnesia Dc Haylee, SILK SCREEN ETCHER 03/24/2019 J30.89 Other allergic rhinitis Dc Haylee, SILK SCREEN ETCHER 03/24/2019 J01.90 Acute sinusitis, unspecified Dcnerissa Leach, SILK SCREEN ETCHER 03/07/2019 M05.79 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 multiple site 03/07/2019 Z79.899 Other intermodal customer service (current) drug therapy Yovani Izaguirre M.D. 03/07/2019 M54.2 Cervicalgia Yovani Izaguirre M.D. 03/07/2019 M54.6 Pain in thoracic spine Yovani Izaguirre M.D. Plan of Treatment Future Appointment(s):02/15/2020 10:40 am - Dc Leach NP at [facility] Internal Medicine - [facility]10/24/2019 10:20 am - Yovani Izaguirre M.D. at [facility]08/17/2019 - Dc Leach NPI10 Essential (primary) hypertensionComments:Your blood pressure remains too high. Increase your atenolol to 50mg every day. Try taking this at night to see if you still get tired after taking your medication.J01.90 Acute sinusitis, unspecifiedNew Medication:Azithromycin 250 mg - 2 tabs by mouth every day x1 day, 1 tab by mouth every day x 4 daysComments:Complete the entire course of antibiotics, even if feeling better.R14.0 Abdominal distension (gaseous)Comments:I recommend contacting Dr. Radha Goodwin to set up a follow up visit.K21.9 Gastro-esophageal reflux disease without esophagitis Functional Status Description No Information Available Mental Status Description No Information Available Referrals Refer to Dr Reason for Referral Status Appt Date Jey Myers MD Please monitor for Plaquenil toxicity Sent [address] [place] [id number] [phone]
--- OUTSIDE RECORDS SUMMARY | 2019-09-28 12:15 | XMS REPORT ---
:1955 Author Organization [facility] Care Team Providers Name Role Phone TRUONG JERONIMO Primary Care Physician Unavailable Allergies, Adverse Reactions, Alerts Allergy Code CodeSystem Reaction Severity Criticality Status Start Substance Date Moderate Medications Medication Medication Medication Start Stop Route Dose Status Fill Code CodeSystem Date Date Instructions omeprazole 20020910 RxNorm 2017-08 oral 40 mg active for 30 1-26 capsule, day(s) delayed release( DR/EC) escitalopram 805921 RxNorm 2019- oral 10 mg 1 completed Take 1 tablet oxalate 7-16 08-15 tablet by mouth once once a a day for 30 day day(s) atenolol 103234 RxNorm oral 25 mg active for 30 4-30 tablet day(s) amlodipine 858054 RxNorm oral 2.5 mg active for 30 3-06 tablet day(s) lisinopril 926953 RxNorm oral 40 mg active for 30 6-26 tablet day(s) tramadol 941139 RxNorm oral 50 mg active for 15 7-05 tablet day(s) mirtazapine 466174 RxNorm 2020- oral 15 mg 1 active Take 1 tablet 9-10 02-10 tablet at bedtime at as needed for bedtime 30 day(s) Problems Problem Name Code CodeSystem Alternate Alternate Start End Status Narrative Code CodeSystem Date Date Other 83669131 SNOMED-CT Completed specified 7-16 anxiety disorder Post-traumat 90891648 SNOMED-CT Active ic stress 9-24 disorder, unspecified Moderate 49840197 SNOMED-CT Completed depressive 6-26 episode Post-traumat 95615939 SNOMED-CT Completed ic stress 7-16 disorder, unspecified Recurrent 91929377 SNOMED-CT Active depressive 9-24 disorder, current episode moderate Adjustment 99318138 SNOMED-CT Completed disorder with 6-26 mixed anxiety and depressed mood Generalized 42439464 SNOMED-CT 2018- Active anxiety 9-24 disorder Relevant diagnostic tests/laboratory data Narrative No Information Procedures Procedure Code CodeSystem Target Date of Status Service Device Device Device Name Site Procedure Delivery Code Name UID Location Psychotherap [id number] SNOMED-CT () 2019-04-11 complete Mental y, 45 04 d Health- minutes with [address], [id number] [id number] Psychotherap [id number] SNOMED-CT () 2019-02-08 complete Mental y, 45 04 d Health- minutes with [facility] patient [address], [id number] [phone] Psychotherap [id number] SNOMED-CT () 2019-06-21 complete Mental y, 45 04 d Health- minutes with [address], [id number] [phone] Psychotherap 574313 SNOMED-CT () 2019-07-06 complete Mental y, 45 04 d Health- minutes with [facility] patient [address], [id number] [phone] Psychotherap 065804 SNOMED-CT () 2019-05-10 complete Mental y, 45 04 d Health- minutes with [facility] patient [address], [id number] [phone] Psychotherap [id number] SNOMED-CT () 2019-05-23 complete Mental y, 45 04 d Health- minutes with [facility] patient [address], [id number] [phone] Psychotherap [id number] SNOMED-CT () 2019-08-15 complete Mental y, 45 04 d Health- minutes with [facility], [id number] [phone] Psychiatric [id number] SNOMED-CT () 2019-02-14 complete Mental diagnostic 85 d Health- evaluation [facility] with [address], [id number] [phone] Office or [id number] SNOMED-CT () 2019-03-14 complete Mental other 7 d Health- outpatient [facility] visit for [place] [address], established [id number] patient, [phone] which requires at least 2 of these 3 trotter components: An expanded problem focused history; An expanded problem focused examination; Medical decision making of low Office or 003544 SNOMED-CT () 2019-04-11 complete Mental other 6 d Health- outpatient [facility] visit for [address], established [id number] patient, [phone] which requires at least 2 of these 3 trotter components: A problem focused history; A problem focused examination; Straightforw [place] medical decision making. Counselin Office or 115420 SNOMED-CT () 2019-05-09 complete Mental other 6 d Health- outpatient [facility] visit for [address], established [id number] patient, [phone] which requires at least 2 of these 3 trotter components: A problem focused history; A problem focused examination; Straightforw [place] medical decision making. Counselin Office or 988659 SNOMED-CT () 2019-06-13 complete Mental other 6 d Health- outpatient [facility] visit for [address], established [id number] patient, [phone] which requires at least 2 of these 3 trotter components: A problem focused history; A problem focused examination; Straight[place]w [place] medical decision making. Counselin Office or 359373 SNOMED-CT () 2019-07-11 complete Mental other 6 d Health- outpatient [facility] visit for [address], established [id number] patient, [phone] which requires at least 2 of these 3 trotter components: A problem focused history; A problem focused examination; Straight[place]w [place] medical decision making. Counselin Office or 249757 SNOMED-CT () 2019-08-10 complete Mental other 6 d Health- outpatient [facility] visit for [address], established [id number] patient, [phone] which requires at least 2 of these 3 trotter components: A problem focused history; A problem focused examination; Straightforw [place] medical decision making. Counselin SNOMED-CT () 2019-03-06 complete Mental d [facility] [address] [place], [place], [id number] [phone] SNOMED-CT () 2019-04-26 complete Mental d [facility] [address] [place], [place], [id number] [phone] SNOMED-CT () 2019-01-25 complete Mental d [address], [id number] [phone] Encounters/Encounter Diagnoses Encounter Name Encounter Diagnosis Diagnosis Diagnosis Date of Service Code Code Name CodeSystem Diagnosis Delivery Location Psychotherapy - 44433 [id number] Recurrent SNOMED-CT 2019-08-15 Behavioral Individual 30 depressive Health min disorder, Clinic [address] [place], [place], [id number] Vital Signs No Information Social History Element Description Description Start End Code CodeSystem AdditionalInfo Date Date SexAssignedAtBirth Female 1955-0 F AdministrativeGender 4-15 Hospital Discharge Instructions Reason For Referral Medical Equipment FDA Assessments
--- OUTSIDE RECORDS SUMMARY | 2019-09-28 12:15 | XMS REPORT ---
:1955 Author Organization [facility] Care Team Providers Name Role Phone TRUONG JERONIMO Primary Care Physician Unavailable Allergies, Adverse Reactions, Alerts Allergy Code CodeSystem Reaction Severity Criticality Status Start Substance Date Moderate Medications Medication Medication Medication Start Stop Route Dose Status Fill Code CodeSystem Date Date Instructions mirtazapine 337170 RxNorm 2019- oral 15 mg 1 active Take 1 tablet 9-10 02-10 tablet at bedtime at as needed for bedtime 30 day(s) omeprazole 20020910 RxNorm 2017-08 oral 40 mg active for 30 1-26 capsule, day(s) delayed release( DR/EC) tramadol 416510 RxNorm oral 50 mg active for 15 7-05 tablet day(s) amlodipine 792692 RxNorm oral 2.5 mg active for 30 3-06 tablet day(s) lisinopril 477596 RxNorm oral 40 mg active for 30 6-26 tablet day(s) escitalopram 739188 RxNorm 2019- oral 10 mg 1 completed Take 1 tablet oxalate 7-16 08-15 tablet by mouth once once a a day for 30 day day(s) atenolol 716845 RxNorm oral 25 mg active for 30 4-30 tablet day(s) Problems Problem Name Code CodeSystem Alternate Alternate Start End Status Narrative Code CodeSystem Date Date Moderate 90862026 SNOMED-CT Completed depressive 6-26 episode Post-traumat 20260971 SNOMED-CT Active ic stress 9-24 disorder, unspecified Adjustment 29566345 SNOMED-CT 0 Completed disorder with 6-26 mixed anxiety and depressed mood Generalized 61956136 SNOMED-CT 0 Active anxiety 9-24 disorder Other 66902366 SNOMED-CT 0 Completed specified 7-16 anxiety disorder Recurrent 40002056 SNOMED-CT 0 Active depressive 9-24 disorder, current episode moderate Post-traumat 46508765 SNOMED-CT 2018- Completed ic stress 7-16 disorder, unspecified Relevant diagnostic tests/laboratory data Narrative No Information Procedures Procedure Code CodeSystem Target Date of Status Service Device Device Device Name Site Procedure Delivery Code Name UID Location SNOMED-CT () 2019-01-25 complete Mental d Health- [facility], [phone] Psychiatric [id number] SNOMED-CT () 2019-02-14 complete Mental diagnostic 85 d Health- evaluation [facility] with medical [address], [id number] [phone] Psychotherap 891808 SNOMED-CT () 2019-02-08 complete Mental y, 45 04 d Health- minutes with [facility] patient [address], [id number] [phone] SNOMED-CT () 2019-03-06 complete Mental d Health- [facility], [id number] [phone] Office or [id number] SNOMED-CT () 2019-03-14 complete Mental other 7 d Health- outpatient [facility] visit for [address], [facility] established [id number] patient, [phone] which requires at least 2 of these 3 trotter components: An expanded problem focused history; An expanded problem focused examination; Medical decision making of low Psychotherap 216897 SNOMED-CT () 2019-04-11 complete Mental y, 45 04 d Health- minutes with [facility] patient [address], [phone] Office or 735971 SNOMED-CT () 2019-04-11 complete Mental other 6 d Health- outpatient [facility] visit for [address], established [id number] patient, [phone] which requires at least 2 of these 3 trotter components: A problem focused history; A problem focused examination; Straightforw sammie medical decision making. Counselin SNOMED-CT () 2019-04-26 complete Mental d Health- [facility] [address], [phone] Office or [id number] SNOMED-CT () 2019-05-09 complete Mental other 6 d Health- outpatient [facility] visit for [address], established [id number] patient, [phone] which requires at least 2 of these 3 trotter components: A problem focused history; A problem focused examination; Straight[place]w [place] medical decision making. Counselin Psychotherap [id number] SNOMED-CT () 2019-05-10 complete Mental y, 45 04 d Health- minutes with [facility] patient [address], [id number] [phone] Psychotherap 697046 SNOMED-CT () 2019-05-23 complete Mental y, 45 04 d Health- minutes with [facility] patient [address], [id number] [phone] Office or [id number] SNOMED-CT () 2019-06-13 complete Mental other 6 d Health- outpatient [facility] visit for [address], established [id number] patient, [phone] which requires at least 2 of these 3 trotter components: A problem focused history; A problem focused examination; Straight[place]w [place] medical decision making. Counselin Psychotherap [id number] SNOMED-CT () 2019-06-21 complete Mental y, 45 04 d Health- minutes with [facility] patient [address], [phone] Psychotherap [id number] SNOMED-CT () 2019-07-06 complete Mental y, 45 04 d Health- minutes with [facility] patient [address], [phone] Office or [id number] SNOMED-CT () 2019-07-11 complete Mental other 6 d Health- outpatient [facility] visit for [address], established [id number] patient, [phone] which requires at least 2 of these 3 trotter components: A problem focused history; A problem focused examination; Straightforw sammie medical decision making. Counselin Office or 113891 SNOMED-CT () 2019-08-10 complete Mental other 6 d Health- outpatient [facility] visit for [address], [facility] [id number] patient, [phone] which requires at least 2 of these 3 trotter components: A problem focused history; A problem focused examination; Straightforw sammie medical decision making. Counselin Psychotherap [id number] SNOMED-CT () 2019-08-15 complete Mental y, 45 04 d Health- minutes with [facility] patient [address], [id number] [phone] Psychotherap [id number] SNOMED-CT () 2019-08-31 complete Mental y, 45 04 d Health- minutes with [facility] patient [address], [id number] [phone] Office or [id number] SNOMED-CT () 2019-09-12 complete Mental other 6 d Health- outpatient [facility] visit for [address], [facility] [id number] patient, [phone] which requires at least 2 of these 3 trotter components: A problem focused history; A problem focused examination; Straightforw sammie medical decision making. Counselin SNOMED-CT () 2019-09-14 complete Mental d Health- [address], [phone] Encounters/Encounter Diagnoses Encounter Name Encounter Diagnosis Diagnosis Diagnosis Date of Service Code Code Name CodeSystem Diagnosis Delivery Location Psychotherapy - 81866 [id number] Recurrent SNOMED-CT 2019-09-14 Behavioral Individual 30 depressive Health min disorder, Clinic [address] [place] [address], [phone] Vital Signs No Information Social History Element Description Description Start End Code CodeSystem AdditionalInfo Date Date SexAssignedAtBirth Female 1956-1 F AdministrativeGender 4-15 Hospital Discharge Instructions Reason For Referral Medical Equipment FDA Assessments
--- OUTSIDE RECORDS SUMMARY | 2019-09-28 12:15 | XMS REPORT ---
:1955 Author Organization [facility] Care Team Providers Name Role Phone Royce Alex Primary Care Physician Unavailable Allergies, Adverse Reactions, Alerts Allergy Code CodeSystem Reaction Severity Criticality Status Start Substance Date Moderate Medications Medication Medication Medication Start Stop Route Dose Status Fill Code CodeSystem Date Date Instructions tramadol 512979 RxNorm oral 50 mg active for 15 7-05 tablet day(s) escitalopram 968528 RxNorm 2019- oral 10 mg 1 completed Take 1 tablet oxalate 7-16 08-15 tablet by mouth once once a a day for 30 day day(s) omeprazole 20020910 RxNorm 2017-08 oral 40 mg active for 30 1-26 capsule, day(s) delayed release( DR/EC) lisinopril 559555 RxNorm oral 40 mg active for 30 6-26 tablet day(s) amlodipine 888513 RxNorm oral 2.5 mg active for 30 3-06 tablet day(s) mirtazapine 281328 RxNorm 2020- oral 15 mg 1 active Take 1 tablet 9-10 02-10 tablet at bedtime at as needed for bedtime 30 day(s) atenolol 003372 RxNorm oral 25 mg active for 30 4-30 tablet day(s) Problems Problem Name Code CodeSystem Alternate Alternate Start End Status Narrative Code CodeSystem Date Date 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 SNOMED-CT Completed ic stress 7-16 disorder, unspecified Generalized [id number] SNOMED-CT Active anxiety 9-24 disorder Adjustment [id number] SNOMED-CT Completed disorder with 6-26 mixed anxiety and depressed mood Moderate 25371283 SNOMED-CT Completed depressive 6-26 episode Recurrent [id number] SNOMED-CT Active depressive 9-24 disorder, current episode moderate Other [id number] SNOMED-CT Completed specified 7-16 anxiety disorder Post-traumat 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 SNOMED-CT 2018- Active ic stress 9-24 disorder, unspecified Relevant diagnostic tests/laboratory data Narrative No Information Procedures Procedure Code CodeSystem Target Date of Status Service Device Device Device Name Site Procedure Delivery Code Name UID Location Psychotherap [id number] SNOMED-CT () 2019-04-11 complete Mental y, 45 04 d Health- minutes with [facility] patient [address], [id number] Psychotherap [id number] SNOMED-CT () 2019-02-08 complete Mental y, 45 04 d Health- minutes with [facility] patient [address], [id number] [id number] Psychotherap [id number] SNOMED-CT () 2019-05-10 complete Mental y, 45 04 d Health- minutes with [place] patient [address], [id number] [id number] Psychotherap [id number] SNOMED-CT () 2019-05-23 complete Mental y, 45 04 d Health- minutes with [place] patient [address], [id number] [phone] Psychotherap [id number] SNOMED-CT () 2019-06-21 complete Mental y, 45 04 d Health- minutes with [facility] patient [address], [id number] [id number] Psychotherap [id number] SNOMED-CT () 2019-07-06 complete Mental y, 45 04 d Health- minutes with [place] patient [address], [id number] [id number] Psychiatric [id number] SNOMED-CT () 2019-02-14 complete Mental diagnostic 85 d Health- evaluation [facility] with [address], [id number] [id number] Office or [id number] SNOMED-CT () 2019-03-14 complete Mental other 7 d Health- outpatient [place] visit for [address], of an [place], established [id number] patient, [phone] which requires at least 2 of these 3 trotter components: An expanded problem focused history; An expanded problem focused examination; Medical decision making of [facility] Office or [id number] SNOMED-CT () 2019-04-11 complete Mental other 6 d Health- outpatient [facility] visit for [address], established [id number] patient, [id number] which requires at least 2 of these 3 trotter components: A problem focused history; A problem focused examination; [place] medical decision making. [facility] Office or [id number] SNOMED-CT () 2019-05-09 complete Mental other 6 d Health- outpatient [place] visit for [address], established [id number] patient, [id number] which requires at least 2 of these 3 trotter components: A problem focused history; A problem focused examination; [place] medical decision making. [facility] Office or [id number] SNOMED-CT () 2019-07-11 complete Mental other 6 d Health- outpatient [facility] visit for [address], established [id number] patient, [phone] which requires at least 2 of these 3 trotter components: A problem focused history; A problem focused examination; [place] medical decision making. [facility] Office or [id number] SNOMED-CT () 2019-06-13 complete Mental other 6 d Health- outpatient [facility] visit for [address], established [id number] patient, [id number] which requires at least 2 of these 3 trotter components: A problem focused history; A problem focused examination; [place] medical decision making. [place] SNOMED-CT () 2019-03-06 complete Mental d Health- [address], [id number] [phone] SNOMED-CT () 2019-04-26 complete Mental d Health- [address], [id number] [id number] SNOMED-CT () 2019-01-25 complete Mental d Health[address], [id number] [id number] Encounters/Encounter Diagnoses Encounter Encounter Diagnosis Diagnosis Diagnosis Date of Service Name Code Code Name CodeSystem Diagnosis Delivery Location Non-Billable [id number] Recurrent SNOMED-CT 2019-07-18 Behavioral depressive Health disorder, Clinic , , current , episode moderate Vital Signs No Information Social History Element Description Description Start End Code CodeSystem AdditionalInfo Date Date SexAssignedAtBirth Female 0 F AdministrativeGender -15 Hospital Discharge Instructions Reason For Referral Medical Equipment FDA Assessments
--- NOTE | 2019-09-28 12:42 | UC ---
General HPI - HPI Summary HPI Summary: States she has had a sore throat for 3 weeks - seems about the same - has a significant amount of post nasal drip. No cough or SOB. Unsure if she has had any fevers. No weight loss. Difficulty with solids. Able to drink liquids States she takes her BP meds today but often goes high when at [facility]ors. Is allergic to everything and feels like nothing works for her. Nasal sprays give her bloody noses. States she is on an antihistamine but can't tell me name and it is not on her med rec. No N/V/D. No chills. States she has dust everywhere in her place. No Headache Meds; REvewed - History of Current Complaint Chief Complaint: UCGeneralIllness Stated Complaint: SORE THROAT Time Seen by Provider: 09/28/19 12:16 Pain Intensity: 9 - Allergy/Home Medications Allergies/Adverse Reactions: Allergies Allergy/AdvReac Type Severity Reaction Status Date / Time amoxicillin [From Augmentin] Allergy Unknown Verified 09/28/19 12:18 Reaction Details carbamazepine [From Tegretol] Allergy Anaphylatic Verified 09/28/19 12:18 Shock chocolate flavor Allergy Unknown Verified 09/28/19 12:18 Reaction Details ciprofloxacin Allergy Unknown Verified 09/28/19 12:18 Reaction Details clavulanic acid Allergy Unknown Verified 09/28/19 12:18 [From Augmentin] Reaction Details clindamycin Allergy Unknown Verified 09/28/19 12:18 Reaction Details diazepam Allergy Unknown Verified 09/28/19 12:18 Reaction Details doxycycline Allergy Unknown Verified 09/28/19 12:18 Reaction Details Iodinated Contrast Media Allergy Syncope Verified 09/28/19 12:18 [Iodinated Contrast- Oral and IV Dye] iodine Allergy Syncope Verified 09/28/19 12:18 iopamidol Allergy Unknown Verified 09/28/19 12:18 Reaction Details methimazole Allergy Unknown Verified 09/28/19 12:18 Reaction Details phenobarbital Allergy Anaphylatic Verified 09/28/19 12:18 Shock Sulfa (Sulfonamide Allergy Anaphylatic Verified 09/28/19 12:18 Antibiotics) Shock tetracycline Allergy Anaphylatic Verified 09/28/19 12:18 Shock tomato Allergy Unknown Verified 09/28/19 12:18 Reaction Details seafood Allergy Unknown Uncoded 09/28/19 12:18 Reaction Details Home Medications: Home Medications Atorvastatin* [Lipitor*] 20 mg PO QPM 12/01/18 [History Confirmed 09/28/19] Lisinopril TAB* [Prinivil TAB*] 40 mg PO DAILY 12/01/18 [History Confirmed 03/16] amLODIPine TAB* [Norvasc 5 mg TAB*] 2.5 mg PO DAILY 12/01/18 [History Confirmed 09/28/19] traMADol TAB* [Ultram*] 1 - 2 tab PO Q12H PRN 12/01/18 [History Confirmed ] Atenolol TAB* [Tenormin TAB* 25 MG] 25 mg PO DAILY 12/14/18 [History Confirmed 09/28/19] Albuterol HFA INHALER* [Ventolin HFA Inhaler*] 1 puff INH Q4H PRN 03/16/19 [ History Confirmed 09/28/19] Fluticasone-Salmeterol 250-50* [Advair Diskus 250-50*] 1 puff INH BID 03/16/19 [ History Confirmed 09/28/19] Hydrochlorothiazide TAB* [Hydrodiuril TAB*] 25 mg PO DAILY 03/16/19 [History Confirmed 09/28/19] Hydroxychloroquine Sulfate 2 tab PO DAILY 03/16/19 [History Confirmed 09/28/19] LORazepam TAB(*) [Ativan 1 MG TAB (*)] 1 mg PO BEDTIME PRN 03/16/19 [History Confirmed 09/28/19] Omeprazole 40 mg PO DAILY 03/16/19 [History Confirmed 09/28/19] PMH/Surg Hx/FS Hx/Imm Hx Previously Healthy: Yes Endocrine History: Thyroid Disease Cardiovascular History: Hypertension - Surgical History Surgical History: Yes Surgery Procedure, Year, and Place: C SECTIONS X3. POLYPS IN THROAT REMOVED. DEVIATED SEPTUM. TUBAL LIGATION - Family History Known Family History: Positive: Cardiac Disease Negative: Diabetes - Social History Alcohol Use: None Substance Use Type: None Smoking Status (MU): Former Smoker Review of Systems All Other Systems Reviewed And Are Negative: Yes ENT: Positive: Sore Throat, Nasal Discharge Physical Exam Triage Information Reviewed: Yes Appearance: Well-Appearing Vital Signs: Initial Vital Signs Temp 96.6 F 09/28/19 12:13 Pulse 62 09/28/19 12:13 Resp 20 09/28/19 12:13 BP 171/117 09/28/19 12:13 Pulse Ox 97 09/28/19 12:13 Vital Signs Reviewed: Yes Eyes: Positive: Conjunctiva Clear ENT: Positive: Pharyngeal erythema, TMs normal, Other - post nasal drip noted Neck: Positive: Supple, Enlarged Nodes @ - anterior cervical nodes Respiratory: Positive: Lungs clear, Decreased breath sounds Cardiovascular: Positive: RRR, No Murmur Course/Dx - Course Course Of Treatment: This is a 63 yr old with PND and sore throat Rapid strep Negative Repeat blood pressure Plan Recommend starting Zyrtec 10 mg daily - you can get this over the counter Can also gargle with warm salt water Recommend follow up with PCP regarding elevated blood pressure If symptoms persist and because this seems to be related to allergies, recommend following up with Asthma & Allergy If symptoms persist or worsen, follow up with PCP or return to urgent care - Diagnoses Provider Diagnosis: Post-nasal drip, Sore throat Discharge ED - Sign-Out/Discharge Documenting (check all that apply): Patient Departure All imaging exams completed and their final reports reviewed: No Studies - Discharge Plan Condition: Fair Disposition: HOME Patient Education Materials: Postnasal Drip (DC) Referrals: Dc Leach NP [Primary Care Provider] - Chelsi Blankenship MD [Medical Doctor] - Additional Instructions: Your strep test was negative Recommend starting Zyrtec 10 mg daily - you can get this over the counter Can also gargle with warm salt water If symptoms persist and because this seems to be related to allergies, recommend following up with Asthma & Allergy If symptoms persist or worsen, follow up with PCP or return to urgent care - Billing Disposition and Condition Condition: FAIR Disposition: Home
[2019-09-28 12:48] VITALS: BP 180/94
== END 2019-09-28 12:58 | disposition home or self-care (01) ==
LOC: UCEAST 12:05
DX: J02.9 Acute pharyngitis, unspecified (principal); R09.82 Postnasal drip; I10 Essential (primary) hypertension; E07.9 Disorder of thyroid, unspecified; Z88.1 Allergy status to other antibiotic agents; Z91.02 Food additives allergy status; Z88.8 Allergy status to other drugs, medicaments and biological substances; Z88.0 Allergy status to penicillin; Z91.041 Radiographic dye allergy status; Z88.2 Allergy status to sulfonamides; Z91.018 Allergy to other foods; Z91.013 Allergy to seafood; Z91.09 Other allergy status, other than to drugs and biological substances; Z79.899 Other long term (current) drug therapy; Z87.891 Personal history of nicotine dependence
CPT/HCPCS: 87651; 99211; G0463

== ENCOUNTER 2019-11-28 08:12 | Emergency (ER) | payer MEDICARE, MEDICAID ==
[2019-11-28] MEDS ORDERED: NS 0.9% 1000 ml BAG 1,000 ML IV ONE (08:15)
[2019-11-28] MEDS ORDERED: Famotidine IV 10 MG/ML 2 ml VIAL (20 mg) IV SLOW PU ONE (08:16)
[2019-11-28] MEDS ORDERED: Ondansetron 4 mg VIAL 2 MG/ML 2 ml VIAL IV ONE (08:17)
[2019-11-28 08:41] LABS: ABS Basophils 0.1 10^3/ul (0-0.2); ABS Lymphocytes 1.4 10^3/ul (1.0-4.8); ABS Monocytes 0.7 10^3/ul (0-0.8); Hematocrit 39 % (35-47); Hemoglobin 12.6 g/dL (12.0-16.0); Lymphocyte % 10.9 %; Mean Corpuscular HGB Conc 32 g/dL (31-36); Mean Corpuscular Hemoglobin 26 pg (27-31); Mean Corpuscular Volume 80 fL (80-97); Mean Platelet Volume 7.2 fL (7.4-10.4); Nucleated Red Blood Cells % 0.1; Platelet Count 307 10^3/uL (150-450); Red Blood Count 4.85 10^6 /uL (3.70-4.87); Red Cell Distribution Width 16 % (10-15); White Blood Count 12.4 10^3/uL (3.5-10.8)
[2019-11-28 08:50] LABS: Activated Partial Thrombo Time 27.4 seconds (26.0-38.0); INR 1.13 (0.82-1.09)
[2019-11-28 08:52] LABS: Albumin 4.2 g/dL (3.2-5.2); Calcium 9.4 mg/dL (8.6-10.3); Magnesium 1.7 mg/dL (1.9-2.7); Potassium 3.5 mmol/L (3.5-5.0); Total Bilirubin 0.4 mg/dL (0.2-1.0)
[2019-11-28 08:58] LABS: Albumin/Globulin Ratio 1.1 (1-3); BUN/Creatinine Ratio 12.6 (8-20); EGFR African American 79.3 (>60); EGFR Non-African American 65.6 (>60); Globulin 3.9 g/dL (2-4); Total Protein 8.1 g/dL (6.4-8.9)
[2019-11-28] MEDS ORDERED: Al Hydrox/Mg Hydrox/Simet LIQ 30 ML UDC PO ONE (09:00)
[2019-11-28] MEDS ORDERED: LORazepam 2 mg VIAL 1 ml IV PUSH ONE (09:06)
[2019-11-28] MEDS ORDERED: Lorazepam PYXIS KEY PRN (09:06)
[2019-11-28] MEDS ORDERED: Lorazepam PYXIS KEY ONE (09:09)
[2019-11-28 09:29] LABS: T4, Total 8.95 mcg/dL (6.09-12.23)
[2019-11-28 09:32] LABS: TSH (Thyroid Stimulating Horm) 2.55 mcIU/mL (0.34-5.60)
[2019-11-28] MEDS ORDERED: Iohexol 350 (CONTRAST) 500 ML MDV IV ONE (11:41)
[2019-11-28 14:46] VITALS: BP 108/61
== END 2019-11-28 14:46 | disposition home or self-care (01) ==
LOC: ED 08:12

== ENCOUNTER 2019-12-01 14:20 | Inpatient (IN) ==
[2019-12-01] MEDS ORDERED: methylPREDNISolone 125 mg 2 ML VIAL ONE (14:58)
[2019-12-01] MEDS ORDERED: fentaNYL 100 mcg/2 ml 50 MCG/ML VIAL ONE (14:58)
[2019-12-01] MEDS ORDERED: Lidocaine 1% VIAL 10 MG/ML VIAL ONE (14:58)
[2019-12-01] MEDS ORDERED: Heparin 1,000 UNIT/ML CATH LAB 1,000 10 ml (10,000 UNITS) IV ONE (14:58)
[2019-12-01] MEDS ORDERED: Iohexol 350 (CONTRAST) 100 ML PAK IV ONE (14:58)
[2019-12-01] MEDS ORDERED: Midazolam 5 mg/5 ml VIAL 1 mg/ml 5 ml VIAL (5 mg) ONE (14:58)
[2019-12-01] MEDS ORDERED: diPHENhydraMINE IV 50 MG/ML 1 ml VIAL (BENADRYL) ONE (14:58)
[2019-12-01] MEDS ORDERED: Heparin 2 UNITS/ML 1000 mls IV ONE (14:58)
[2019-12-01] MEDS ORDERED: nitroGLYCERIN DRIP 100 MCG/ML 250 ML BTL ONE (14:58)
[2019-12-01] MEDS ORDERED: Iohexol 350 (CONTRAST) 200 ML MDV IV ONE (14:59)
[2019-12-01] MEDS ORDERED: Metoprolol Tartrate 5 mg VIAL 5 ml VIAL (1 mg/ml) IV ONE (15:00)
[2019-12-01] MEDS ORDERED: Heparin - STEMI 5,000 UNITS/ML 1 ml VIAL IV ONE (15:00)
[2019-12-01] MEDS ORDERED: Adenosine 3 MG/ML 2 ml VIAL (6 mg) IV PUSH ONE ×2 (15:00→15:20)
[2019-12-01] MEDS ORDERED: Atropine 1MG/ML INJ 1 ML VIAL IV PUSH PRN (17:00)
[2019-12-01] MEDS ORDERED: NS 0.9% 1000 ml BAG 1,000 ML IV SCH (17:00)
[2019-12-01] MEDS ORDERED: LORazepam 2 mg VIAL 1 ml IV PUSH ONE (18:44)
[2019-12-01] MEDS ORDERED: LORazepam 2 mg VIAL 1 ml ONE (18:56)
[2019-12-01] MEDS ORDERED: Iohexol 350 (CONTRAST) 500 ML MDV IV ONE (19:20)
[2019-12-01] MEDS ORDERED: Senna TAB 8.6 mg TAB PO PRN (19:29)
[2019-12-01] MEDS ORDERED: Metoprolol Tartrate 5 mg VIAL 5 ml VIAL (1 mg/ml) IV PRN (19:30)
[2019-12-01 20:37] LABS: ABS Lymphocytes 2.4 10^3/ul (1.0-4.8); ABS Monocytes 0.8 10^3/ul (0-0.8); Hematocrit 36 % (35-47); Mean Corpuscular HGB Conc 33 g/dL (31-36); Mean Corpuscular Hemoglobin 26 pg (27-31); Mean Corpuscular Volume 80 fL (80-97); Mean Platelet Volume 8.4 fL (7.4-10.4); Platelet Count 333 10^3/uL (150-450); Red Blood Count 4.55 10^6 /uL (3.70-4.87); Red Cell Distribution Width 16 % (10-15); White Blood Count 8.4 10^3/uL (3.5-10.8)
[2019-12-01 20:38] LABS: Eosinophil % 0.3 %; Lymphocyte % 28.4 %; Nucleated Red Blood Cells % 0.1
[2019-12-01 20:39] LABS: TSH (Thyroid Stimulating Horm) 4.64 mcIU/mL (0.34-5.60); Troponin I 0.04 ng/mL (<0.03)
[2019-12-01 20:40] LABS: Sodium 135 mmol/L (135-145)
[2019-12-01 20:41] LABS: ALT 20 U/L (7-52); Albumin 3.5 g/dL (3.2-5.2); Albumin/Globulin Ratio 0.7 (1-3); Alkaline Phosphatase 81 U/L (34-104); Anion Gap 7 mmol/L (2-11); BUN/Creatinine Ratio 11.8 (8-20); Blood Urea Nitrogen 10 mg/dL (6-24); CO2 Carbon Dioxide 29 mmol/L (22-32); Calcium 9.9 mg/dL (8.6-10.3); Chloride 99 mmol/L (101-111); EGFR African American 81.5 (>60); EGFR Non-African American 67.3 (>60); Glucose 161 mg/dL (70-100); Total Protein 8.5 g/dL (6.4-8.9)
[2019-12-01 20:44] LABS: Hemoglobin 11.4 g/dL (12.0-16.0); Red Blood Count 4.28 10^6 /uL (3.70-4.87); White Blood Count 8.5 10^3/uL (3.5-10.8)
[2019-12-01 20:45] LABS: ABS Basophils 0.1 10^3/ul (0-0.2); ABS Lymphocytes 2.6 10^3/ul (1.0-4.8); ABS Monocytes 0.8 10^3/ul (0-0.8); Hematocrit 34 % (35-47); Lymphocyte % 31.2 %; Mean Corpuscular HGB Conc 34 g/dL (31-36); Mean Corpuscular Hemoglobin 27 pg (27-31); Mean Corpuscular Volume 79 fL (80-97); Platelet Count 314 10^3/uL (150-450); Red Cell Distribution Width 16 % (10-15)
[2019-12-01 20:46] LABS: Activated Partial Thrombo Time 39.1 seconds (26.0-38.0); Eosinophil % 0.2 %; INR 1.23 (0.82-1.09); Nucleated Red Blood Cells % 0.1
[2019-12-01 20:47] LABS: ALT 16 U/L (7-52); AST 14 U/L (13-39); Albumin 3.4 g/dL (3.2-5.2); Albumin/Globulin Ratio 0.8 (1-3); Alkaline Phosphatase 79 U/L (34-104); Anion Gap 10 mmol/L (2-11); Blood Urea Nitrogen 9 mg/dL (6-24); CO2 Carbon Dioxide 25 mmol/L (22-32); Calcium 9.7 mg/dL (8.6-10.3); Chloride 101 mmol/L (101-111); EGFR African American 103.6 (>60); EGFR Non-African American 85.7 (>60); Globulin 4.3 g/dL (2-4); Glucose 164 mg/dL (70-100); Potassium 3.2 mmol/L (3.5-5.0); Sodium 136 mmol/L (135-145); Total Protein 7.7 g/dL (6.4-8.9)
[2019-12-01 20:48] LABS: Troponin I 0.04 ng/mL (<0.03)
[2019-12-01] MEDS: KCL 20 MEQ/100 ML IVPREMIX 20 MEQ/100 ML BAG IV SCH (21:59)
[2019-12-02 01:43] LABS: C Reactive Protein 271.16 mg/L (<8.01)
[2019-12-02 02:04] LABS: Erythrocyte Sed Rate 50 mm/Hr (0-29)
[2019-12-02] MEDS: KCL 20 MEQ/100 ML IVPREMIX 20 MEQ/100 ML BAG IV SCH ×2 (02:06→04:18)
[2019-12-02 05:42] LABS: ABS Lymphocytes 0.8 10^3/ul (1.0-4.8); ABS Monocytes 0.2 10^3/ul (0-0.8); Eosinophil % 0.1 %; Hematocrit 32 % (35-47); Hemoglobin 10.7 g/dL (12.0-16.0); Lymphocyte % 13.1 %; Mean Corpuscular HGB Conc 34 g/dL (31-36); Mean Corpuscular Hemoglobin 27 pg (27-31); Mean Corpuscular Volume 79 fL (80-97); Mean Platelet Volume 7.9 fL (7.4-10.4); Nucleated Red Blood Cells % 0.1; Platelet Count 323 10^3/uL (150-450); Red Blood Count 4.05 10^6 /uL (3.70-4.87); Red Cell Distribution Width 16 % (10-15); White Blood Count 5.9 10^3/uL (3.5-10.8)
[2019-12-02 05:58] LABS: BUN/Creatinine Ratio 17.9 (8-20); Calcium 9.3 mg/dL (8.6-10.3); EGFR Non-African American 74.4 (>60); Magnesium 1.8 mg/dL (1.9-2.7); Potassium 4.6 mmol/L (3.5-5.0)
[2019-12-02] MEDS ORDERED: Magnesium Sulfate 2 gm BAG 2 GM/50 ML BAG IVPB ONE (07:23)
[2019-12-02 11:45] LABS: Hematocrit 34 % (35-47); Hemoglobin 11.3 g/dL (12.0-16.0)
[2019-12-02 12:07] LABS: % Iron Saturation 23 % (15-55); Iron 50 ug/dL (50-212); Total Iron Binding Capacity 214 mcg/dL (250-450); Transferrin 153 mg/dL (203-362)
[2019-12-02 12:32] LABS: Ferritin 538.8 ng/mL (11-307)
[2019-12-02 12:36] LABS: Folate 11.21 ng/mL (>3.99)
[2019-12-02 12:44] LABS: Thyroglobulin Antibody II 0.2 IU/mL (<4.0)
[2019-12-02 13:06] LABS: Urine Appearance Cloudy; Urine Bilirubin Negative (Negative); Urine Blood 1+ (Negative); Urine Color Yellow; Urine Glucose 1+(50 mg/dL) (Negative); Urine Ketones Negative (Negative); Urine Nitrite Negative (Negative); Urine Protein 1+(30 mg/dL) (Negative); Urine Specific Gravity 1.026 (1.010-1.030); Urine Urobilinogen Negative (Negative)
[2019-12-02 13:11] LABS: Urine Bacteria 1+ (Absent); Urine Red Blood Cell Trace(0-2/hpf) (Absent); Urine Squamous Epithelial Cell Present (Absent); Urine White Blood Cell Trace(0-5/hpf) (Absent)
[2019-12-02] MEDS: Pregabalin 25 mg CAP (*) PO SCH (21:35)
[2019-12-02] MEDS ORDERED: Polyethylene Glycol 3350 17 GM PACKET PO PRN (21:47)
[2019-12-03 06:42] LABS: Hematocrit 38 % (35-47); Hemoglobin 12.7 g/dL (12.0-16.0); Mean Corpuscular HGB Conc 33 g/dL (31-36); Mean Corpuscular Hemoglobin 27 pg (27-31); Mean Corpuscular Volume 80 fL (80-97); Red Cell Distribution Width 16 % (10-15); White Blood Count 11.7 10^3/uL (3.5-10.8)
[2019-12-03 06:55] LABS: Calcium 9.4 mg/dL (8.6-10.3); Magnesium 1.9 mg/dL (1.9-2.7)
[2019-12-03 06:58] LABS: ABS Basophils 0.1 10^3/ul (0-0.2); ABS Lymphocytes 4.7 10^3/ul (1.0-4.8); ABS Monocytes 0.9 10^3/ul (0-0.8); Eosinophil % 0.3 %; Lymphocyte % 40.1 %; Nucleated Red Blood Cells % 0.1; Platelet Count Platelets clumped. 10^3/uL (150-450)
[2019-12-03 07:00] LABS: BUN/Creatinine Ratio 24.3 (8-20); EGFR African American 101.9 (>60); EGFR Non-African American 84.2 (>60)
[2019-12-03 08:00] LABS: Potassium 4.1 mmol/L (3.5-5.0)
[2019-12-03] MEDS: Pregabalin 25 mg CAP (*) PO SCH ×2 (10:05→21:10)
[2019-12-03] MEDS ORDERED: Enoxaparin 40 MG/0.4 ML SYR(*) SUBCUT SCH (15:00)
[2019-12-04] MEDS: Pregabalin 25 mg CAP (*) PO SCH (08:21)
[2019-12-04 11:14] VITALS: BP 150/80
== END 2019-12-04 13:30 | disposition home or self-care (01) | DRG 287 ==
LOC: ED 17:20 → MEDTELE 17:20 → OBSVTOIN 20:26
PROVIDERS: ADMIT Physician Assistant; ATTEND Family Medicine